=== PATIENT | male | born 1960 | race Caucasian/White ===

== ENCOUNTER 2017-03-10 07:50 | Inpatient (IN) | payer OTHER ==
--- NOTE | 2017-03-08 10:47 | PCM.ANEPRE ---
Anesthesia Pre-Op Review Reason for Review: rib fx and cough, CXR called to Dr Wright- proceed Anesthesia Recommendations: Proceed with Procedure Additional Comments 56 yo man with biceps tendon rupture and 3-4 rib fx...fx on 02/22, CXR shows local trauma, no pneumthorax....ribs should be partially knitted now, occ cough , getting along ok needs biceps repaired. Ok to proceed, consider LMA to minimize positive pressure ventilation. Chart Reviewed by: Nicolás Samuels MD, MD Mar 08, 2017 10:47
[~2017-03-10] VITALS: Ht 167.6 cm; Wt 77.9 kg
[2017-03-10] VITALS (19 sets, daily range): BP systolic 90–141; BP diastolic 63–97; PULSE 92–107; RESP 10–27; O2SAT 88–95
[~2017-03-10 07:50] MED LIST: HYDR-4003 PO; IBUP-1827 PO; Lactated Ringer's 1,000 ML IV SCH
[2017-03-10] MEDS: Lactated Ringer's 1,000 ML IV SCH ×3 (08:03→14:38)
--- NOTE | 2017-03-10 09:03 | DRSVH ---
PROCEDURE: X-RAY CHEST ONE VIEW, PORTABLE ([id number]) INDICATIONS: decrease sats, green sputum TECHNIQUE: One view of the chest was acquired. COMPARISON: [facility], CR, XR CHEST 2VW, 02/28/2017, 12:08. FINDINGS: Surgical changes and devices: None. Lungs and pleura: No pleural effusions or pneumothorax. Lungs are clear. Mediastinum: Mediastinal contours appear normal. Heart size is normal. Bones and chest wall: No suspicious bony lesions. Overlying soft tissues appear unremarkable. IMPRESSION: Mildly reduced inspiratory volume, no acute disease. Old right lateral rib fractures aga in noted. Dictated by: Reno Martinez M.D. on 03/10/2017 at 9:00 Approved by: Reno Martinez M.D. on 03/10/2017 at 9:01
[2017-03-10] MEDS: CeFAZolin Inj 2 GM in IV Premix 1 EACH IV ONE ×2 (09:48→09:55)
[2017-03-10] MEDS ORDERED: Ketorolac 15 mg/mL Inj IVPUSH ONE (09:50)
--- NOTE | 2017-03-10 09:54 | PCM.ORTHOP ---
Orthopedic Operative Report Date of Service: Mar 10, 2017 Pre Operative Diagnosis Left distal biceps rupture Post Operative Diagnosis Same Procedure Left distal biceps repair Surgeon Surgeon: Asim Garvey MD Assistants: None Indication for Procedure Left distal biceps repair Findings Per dictation Details of Procedure Operative Indications: Brian Gaona is a 56-year-old right hand dominant who presents with a left distal biceps rupture from Feb 22 2017 after falling from a ladder. A clear explanation was given to the patient regarding the condition, the conservative and surgical options. It was emphasized that the risks and benefits of surgery include but are not limited to infection, wound healing problems, damage to adjacent structures such as nerves, blood vessels and tendons, emt intermediate disability and pain, arthritis, hypersensitivity, deep vein thrombosis, pulmonary embolism and loss of limb or life. The likely post operative recovery and the instructions that are to be followed after surgery were also discussed and explained. The patient was invited to ask questions or seek clarification but there were none. The patient voiced understanding of the entire discussion and requested to move forward. Procedure: Brian Gaona was seen in preoperative holding and the left side was reconfirmed and marked as the correct side. The patient was taken to the OR and transferred to the OR table without incident. A time-out was performed reconfirming the patients identity, laterality of surgery and proper administration of preoperative antibiotics. After the examination the extremity was prepped and draped in a sterile fashion with 2% Chlorhexadine solution. A sterile tourniquet was applied. The incision was clearly marked out. We paused to reconfirm the procedure and laterality one last time. Incision was made with a #15 blade and subsequent sharp dissection was performed with aid of electrocautery to control the bleeding down to the level of the fascia. Appropriate full thickness skin flaps were subsequently developed. There was notable disruption of distal biceps from the trauma. The interval between the BR and pronator teres was identified and developed down to the level of the joint capsule. The lateral antebrachial cutaneous nerve was identified and retracted. Recurrent veins were isolated and coagulated with a bipolar electrocautery. The forearm was fully supinated and the area vacated by the ruptured biceps was identified. Using blunt disection and the bipolar the radial tuberosity was exposed until there was good visualization. At this time the biceps tendon was palpated retracted into the upper arm and was delivered out of the wound. The tendon's overall condition was good. The very end was debrided and then whipstitched in a grasping fashion with a Fiberloop. The allowed for a good grasping stitch. Provisionally it appeared that the tendon could be reduced down to the level of the radial tuberosity. The tuberosity was then debrided and a guidepin was placed slightly distal to the exact center of the insertion point. This was checked with Fluoro to ensure correct placement. The near cortex was then reamed with a 7.5mm reamer. A cortical button was attached to the end of the suture and the elbow flexed. The button was introduced through the bone tunnel flipped and then appropriate tension was applied to reduce the tendon to the bone. The reduction was secure and ROM was checked demonstrated that the biceps was not under too much tension. A interference screw was inserted 7.0 The tourniquet was let down and bleeding was controlled. The wound was irrigated copiously with sterile saline solution. Subcutaneous closure was achieved with 2-0 vicryl followed by vertical mattress 3-0 nylon suture. Steri strips were then applied. The wound was then dressed in a sterile fashion and a posterior splint was applied. The patient was awoken gently from anesthesia and transferred to the PACU in stable condition. Please keep dressing clean dry and intact. Do not remove dressing until follow- up in clinic. Do not weight-bear on the affected extremity. You will follow up in clinic in 10-14 days for suture removal, and placement of new Steri- Strips. You will follow-up with me in clinic without x-rays at this time. You will follow-up with me at 6 weeks postop and may start weightbearing as tolerated at 6-8 weeks. depending on your motion and pain level. Please keep the affected extremity elevated when possible. You may use ice and/or heat as needed for comfort (preferably ice during the first 48-72 hours. Please feel free to call with any further questions, comments, and/or concerns. You have been given medications for pain, medication for possible constipation which is a side affect of the pain medications. It was noted that Brian had greenish sputum upon extubation, recommend contact her PCP today for possible antibiotic initiation and lung evaluation. Grafts, Implants: Implants-See Implant Record Complications There were no periprocedural complications identified. Condition Stable Anesthetic Administered: GA Catheters: None Output, Estimated Blood Loss: 15 Blood Admin during surgery: No Surgical Cast or Splint: Long Arm Splint Surgical Specimen Removed: No Specimen sent to Pathology: No copies to: Asim Garvey MD, Christopher L MD Mar 10, 2017 09:54
[2017-03-10] MEDS ORDERED: Bacitracin 50,000 unit Inj IRRIGATION ONE (10:28)
[2017-03-10] MEDS ORDERED: Lactated Ringer's 500 ML IV PRN (10:31)
[2017-03-10] MEDS ORDERED: Lactated Ringer's 1,000 ML IV SCH (10:31)
[2017-03-10] MEDS ORDERED: Ondansetron 2 mg/mL 2 mL Inj IVPUSH PRN ×2 (10:35→13:10)
[2017-03-10] MEDS ORDERED: HYDROmorphone 1 mg/mL Inj IVPUSH PRN (10:35)
[2017-03-10] MEDS ORDERED: fentaNYL-PF 50 mCg/mL 2 mL Inj IVPUSH PRN (10:35)
[2017-03-10] MEDS ORDERED: Labetalol 5 mg/mL 4 mL Inj IV PRN (10:35)
[2017-03-10] MEDS ORDERED: Atropine 0.4 mg/mL Inj IVPUSH PRN (10:35)
[2017-03-10] MEDS ORDERED: Phenylephrine 10,000 mCg/mL Inj IVPUSH PRN (10:35)
[2017-03-10] MEDS ORDERED: MetoCLOpramide 5 mg/mL 2 mL Inj IVPUSH PRN (10:35)
[2017-03-10] MEDS ORDERED: EPHEDrine Sulfate 50 mg/mL Inj IVPUSH PRN (10:35)
[2017-03-10] MEDS ORDERED: Albuterol-Ipratropium 3 mL Inhalation Solution NEB PRN ×2 (10:35→13:15)
--- NOTE | 2017-03-10 10:46 | PCM.HPANE ---
Patient Data Surgeon Admitting Provider: Attending Provider:Asim Garvey MD Primary Care Physician:Fitz Other Provider:Evelia Hodgson Anesthesia Reason for Visit Left Distal Biceps Rupture Ht/WT & BMI Height (Feet): 5 Height (Inches): 6 Weight (Kilograms): 78.3 Body Mass Index 27.00 Allergies Coded Allergies: No Known Allergies (Unverified , 03/08/17) Past Anesthesia History Anesthesia History: Denies:: Abnormal Airway, Anesthesia Reactions, Difficult Intubation, Fam Anesthesia Reaction, Fam Malignant Hypertherm, Malignant Hyperthermia Diabetes History Hx Diabetes?: No MRSA MRSA: Yes (hand- 4-6 years ago) Medications Hypertension Medication: No Home Meds Incl Beta Lexa: No Reported Medications Ibuprofen 600 Mg [id number] Mg PO Q6H PRN For Pain Ref 0 03/08/17 Hydrocodone-Acetaminophen 5-325 mg 1 Each Tablet1 Tablet PO Q6H PRN For Pain Ref 0 03/08/17 History History of ENT Problems?: No HEENT History: Positive for:: Sinus Problem (HAYFEVER) Denies:: Cataracts Dysphagia Glaucoma Hearing Problem Denture Type: None Teeth Condition: Missing Teeth (very poor dentition, missing many teeth) Hx of Heart Problems?: Yes Cardiovascular History: Denies:: AICD Abdominal Aortic Aneurism Atrial Fibrillation Cardiac Surgery Chest Pain Congestive Heart Failure Coronary Artery Disease Edema Heart Murmur Hypertension Irregular Heartbeat Pacemaker Peripheral Vascular Rheumatic Fever Thrombophlebitis Valvular Heart Disease Hx of Respiratory Problem?: Yes Respiratory History: Positive for:: Cough (after injury- rib fx ) Denies:: Asthma COPD Chest Surgery Dyspnea Emphysema Hemoptysis Oxygen Administration Pneumonia Pulmonary Embolism Tuberculosis Use of C-PAP Machine Use of Inhalers / NEBS Other Resp Pertinent History: cracked rib on right side 02/22 at time of injury - productive cough Other History/Comment Significant smoking history, reportedly stopped only recently Hx Neurologic Problems?: No Neurological History: Denies:: Alzheimer's Disease CVA Dementia Dizziness Headaches Multiple Sclerosis Parkinson's Disease Peripheral Neuropathy Seizures TIA Hx of GI Problems?: No Gastrointestinal History: Denies:: Cirrhosis Diverticulitis Gall Bladder Disease Gastroesphageal Reflux Gastrointestinal Bleeding Heartburn Hepatitis Hiatal Hernia Liver Disease Rectal Bleeding Other GI Pertinent History: hx appe Hx of Problems?: No Genitourinary History: Denies:: HX of Hemodialysis Kidney Stones Urinary Tract Infection HX of Peritoneal Dialysis: No Male Hx: Denies:: Prostate Problems Scrotal Mass Testicular Surgery Skin History: Denies:: History Skin Disorders? Pressure Ulcers Hx Musculoskeletal Problems?: Yes Musculoskeletal History: Positive for:: Musculoskeletal Trauma (left distal biceps tendon rupture, cracked right rib current admission) Denies:: Back Injury Degenerative Joint Fibromyalgia Joint Replacement Myasthenia Gravis Osteoarthritis Rheumatoid Arthritis Systemic Lupus Hx of Psycho/Social Problems?: No Psycho Social History: Denies:: Anxiety Bipolar Disorder Hx Depression Suicide Attempt Hx Surgeries?: Yes (appe, finger amp) Hx Any Other Health Problems?: Yes Other History: Positive for:: Hospitalization Denies:: Cancer Thyroid Disease History Blood Transfusions: Positive for:: Accept Blood Products? Denies:: Blood Transfuse Reaction Blood Transfusions Hx Diabetes: No Hx Alcohol Use: NoHx Substance Use: NoHave You Smoked inLast 12 mo: Yes ( quit 4 mos ago- one half to full pack) Stop/Bang S-Snoring: Do You Snore Loudly: No T-Tired: feel tired, fatigued: No O-Obsered: Observed not breath: No P-Blood Pressure: treated: No B- Body Mass Index > 35 kg/m2: No A- Age over 50: Yes N- Neck Large Circumference: No G- Gender Male: Yes VIC Total Score: 2 Risk Assessment Category Category 1A: Patient has history of documented sleep apnea, and HAS NOT received any narcotic, sedative or anesthesia administration during this stay. Category 1B: Patient has history of documented sleep apnea, and HAS received any narcotic , sedative or anesthesia administration during this stay Category 2: Patient has SUSPECTED Obstructive Sleep Apnea, and HAS received any narcotic , sedative or anesthesia administration during this stay. Category 3: Patient has SUSPECTED Obstructive Sleep Apnea and HAS NOT received narcotic, sedative or anesthesia administration during this stay. Category 4: Outpatient in Procedural Areas with known sleep apnea or who screen positive for High Risk via the STOP/BANG questionnaire. Exam Exam Vital Signs Vital Signs Date Time Temp Pulse Resp B/P Pulse Ox O2 Delivery O2 Flow Rate FiO2 03/10/17 08:13 36.5 96 16 141/90 88 Room Air General Appearance: Alert, Oriented X3, Cooperative, No Acute Distress HEENT/AIRWAY: MP 2, Neck Movement (FROM), Mouth Opening (3 FBMO) Lungs: Diminished, Coarse Heart: Exam Unremarkable, Regular Rate/Rhythm, No Murmurs/Rubs/Gallops Meds/Labs/Diagnostics Admission Meds Current Medications Lactated Ringer's (Lr) 1,000 ml @ 120 mls/hr Q8H20M IV Last administered on t 08:03; Start 03/10/17 at 05:00; Stop 03/10/17 at 13:19 Plan Impression Patient chart reviewed, patient interviewed and anesthestic plan with risks, benefits, and alternatives discussed, and informed consent obtained. NPO per Anesth. Guidelines: Yes ASA Physical Status: ASA3 Severe Disease (Signficant lung disease) Anesthetic Plan: GA, Regional Block (Left supraclavicular block for postoperative pain control) Bene/Risks/Altern/Consents: Yes HP Complete Prior to Induction: Yes Other Patient injured himself reportedly on 02/22 and broke several ribs. He reports a life long history of smoking and only recently stopped. He reports splinting from the rib pain. He has some green sputum when coughing but denies any fevers or worsening shortness of breath. Sating low 90's on room air, but this may be his baseline secondary to his smoking history. Repeat CXR performed today look wnl and significantly better from one performed over a week ago. I had a long discussion with the patient about the risks of surgery including pneumonia, respiratory disease, and need to be admitted overnight. I also discussed a left arm block for postoperative pain control. The patient wanted to proceed with surgery and Dr. Garvey is aware of the patient's history, associated risks, and possible need for overnight stay. Tremayne Mendoza MD Mar 10, 2017 09:46
[2017-03-10] MEDS ORDERED: Ropivacaine-PF 0.5% 30 mL Inj INJ ONE (11:07)
[2017-03-10] MEDS ORDERED: Polyethylene Glycol (PEG) 17 Gm Powder PO PRN (13:10)
[2017-03-10] MEDS ORDERED: Alum-Mag Hydrox-Simeth 30 mL Suspension PO PRN (13:10)
[2017-03-10] MEDS ORDERED: Albuterol-Ipratropium 3 mL Inhalation Solution NEB ONE (13:15)
[2017-03-10 13:43] LABS: BASOPHILS % (AUTO) 0.1 % (0-3); EOSINOPHILS % (AUTO) 0.3 % (0-5); Mean Corpuscular Hemoglobin 31.5 pg (27.0-35.0); Platelet Count 314 bil/L (150-400)
--- NOTE | 2017-03-10 13:49 | PCM.ANEP1 ---
Post Anesthesia PACU Phase 1 Assessment Vital Signs Vital Signs Date Time Temp Pulse Resp B/P Pulse Ox O2 Delivery O2 Flow Rate FiO2 03/10/17 13:27 95 17 97/66 95 Nasal Cannula 2 03/10/17 13:15 93 16 96/67 95 Nasal Cannula 2 03/10/17 13:00 92 20 92/68 95 Nasal Cannula 2 03/10/17 12:45 94 10 93/66 94 Nasal Cannula 2 03/10/17 12:30 96 10 91/66 94 Nasal Cannula 2 03/10/17 12:15 12 94/66 93 Nasal Cannula 2 03/10/17 12:10 101 18 90/63 88 Room Air 03/10/17 12:00 96 20 99/76 93 Nasal Cannula 3 03/10/17 11:50 37.3 96 23 104/78 91 Nasal Cannula 3 03/10/17 11:45 96 23 113/83 93 Nasal Cannula 3 03/10/17 11:40 36.9 98 23 117/72 93 Nasal Cannula 3 03/10/17 11:35 97 24 123/95 93 Simple Mask 8 03/10/17 11:30 100 23 124/92 91 Simple Mask 8 03/10/17 11:25 105 22 124/97 92 Simple Mask 8 03/10/17 11:20 36.6 107 27 114/77 91 Simple Mask 8 03/10/17 08:13 36.5 96 16 141/90 88 Room Air Anesthetic Administered: GA Level of Alertness: Awake, talking KAY's with Equal Strength: Yes (except for distribution of arm block) Pain: No Nausea or Vomiting: No CV Function & Hydration Stable: No Airway Device: N/A Oxygen Delivery: Simple Mask Lungs: Diminished, Coarse Dermatome Level: T2 (Sternal Notch) PACU Phase 2 Assessment Complications: Yes (will be admitted for overnight observation secondary to pulmonary disease) Follow up Care: N/A Patient Instructions Provided: N/A Tremayne Mendoza MD Mar 10, 2017 13:49
[2017-03-10] MEDS ORDERED: fentaNYL-PF 50 mCg/mL 2 mL Inj ONE (14:01)
[2017-03-10] MEDS ORDERED: Ondansetron 2 mg/mL 2 mL Inj ONE (14:01)
[2017-03-10] MEDS ORDERED: Dexamethasone 4 mg/mL Inj ONE (14:01)
[2017-03-10] MEDS ORDERED: Glycopyrrolate 0.2 MG/ML 1mL Inj ONE (14:01)
[2017-03-10] MEDS ORDERED: Propofol 10,000 mCg/mL 20 mL Inj ONE (14:01)
[2017-03-10] MEDS ORDERED: Neostigmine 1 mg/mL 10 mL Inj ONE (14:01)
[2017-03-10] MEDS ORDERED: Rocuronium 10 mg/mL 5 mL Inj ONE (14:01)
[2017-03-10] MEDS ORDERED: Phenylephrine/NS-PF 100 mCg/mL 5 mL Syringe IVPUSH ONE (14:01)
[2017-03-10] MEDS ORDERED: MetoCLOpramide 5 mg/mL 2 mL Inj ONE (14:01)
[2017-03-10 14:25] LABS: TROPONIN T < 0.010 ug/L (0.0-0.011)
--- NOTE | 2017-03-10 14:48 | HP ---
[address] [address] HISTORY AND PHYSICAL PATIENT: PABLO CHAMBERS : 1960 MR#: [id number] ADMIT: 03/10/2017 JOB ID: [id number] PRIMARY CARE PROVIDER: None. The patient is a direct admission to the hospital, observational status, [facility]. CHIEF COMPLAINT: Hypoxemia, cough with green sputum. HISTORY OF PRESENT ILLNESS: This is a 56-year-old white male who I was called to admit by orthopedist because of unexplained hypoxemia. The patient fell off the ladder of last month from about a height of [address] down, he grabs something with his left arm which resulted in a detached biceps tendon and subacute trauma to the right lateral ribs with rib fractures involving the 4th through 7th ribs and associated focal pleural thickening with a possible pulmonary subdural hematoma related to the trauma. No pneumothorax. The patient was treated with some Vicodin for these rib fractures and an anti-inflammatory, was seen by physical therapy a week later. At that point, they noted that the muscle was not working on the right side. Set up the patient with an orthopedist who elected to bring the patient in for surgery today and the patient underwent a distal biceps repair. However, during the procedure, they noted hypoxemia which has persisted. The patient is requiring 2-3 L to maintain sats above 90%. The patient's notes over the last week or two he has had some cough and some green sputum which has started. He has significant pain with any coughing. He denies any fevers or chills. He additionally has not had any chest pain, nausea, vomiting, headache or other complaints. REVIEW OF SYSTEMS: Complete review of systems obtained, all pertinent positives in HPI as above, rest of review of systems is negative. PAST MEDICAL HISTORY: Negative except now for a detached biceps operation today. MEDICINES: As mentioned ibuprofen and Vicodin p.r.n. for the last couple weeks. ALLERGIES: None. SOCIAL HISTORY: The patient lives alone in his 5th wheel. He recently quit so he is still a smoker, and he smoked for 30 years. He drinks very little alcohol but had significant alcohol use in the past. FAMILY HISTORY: Father due to COPD. Mother due to cardiac issues, specifics not known. PHYSICAL EXAMINATION: O2 sats 88% on room air, 93% on 3 liters. Blood pressure is 100/75, heart rate 96, and he is afebrile. The patient is alert postoperatively, seen in the recovery room. He is able to answer questions. Skin is warm and dry. Eyes: PERRLA. Mouth shows adequate hydration. No JVD. His cardiac examination has a systolic murmur. Maybe 2/6 in the apex. His lungs are a little coarse and slightly diminished but I do not appreciate any wheezing, bronchial breath sounds, crackles or rales. He has moderate air entry to both lung peacock, but again, has difficulty taking a deep breath due to the pain from his right side ribs. GI soft, nonacute, benign. Extremities: No significant edema. Cranial nerves 2-12 are intact. No gross motor or sensory defects noted. DIAGNOSIS: 1. Hypoxemia. Etiology of this is unclear. At this time we are going to get complete laboratory work, and if his creatinine allows, we will obtain an angio CT to rule out pulmonary embolism and to get a better look at patient's lung tissue, etc. Will provide the patient with a neb treatment now and then p.r.n. Will also look for evidence of underlying pneumonia but defer definitive antibiotic treatment until the results of CAT scan are back. 2. Cough and productive sputum, present on admission. Active. The patient will get a CAT scan, as noted above. Will get sputum cultures, CBC with a differential and a procalcitonin level. Make further decisions depending on those results. 3. Right rib fractures, present on admission. Active and subacute. Presumably 4th through 7th ribs right as noted on chest x-ray from February 28, 2017. These are redemonstrated on the chest x-ray from today which is read as otherwise unremarkable except for reduced inspiratory volume. The patient needs pain control. Will provide him with Percocet 1-2 tablets. If that is not effective, will increase. We will provide him with an incentive spirometer and follow closely. 4. Left distal biceps repair, present on admission, stable. The patient's surgical procedure was on March 10, 2017 and will follow with and ortho will follow postoperative care with the patient. 5. Tobacco use disorder, present on admission. Active. Will residential substance abuse counselor the patient to quit smoking and we will provide him with a nicotine patch as needed. CODE STATUS: FULL CODE. Code sheet filled out. MTDD
--- NOTE | 2017-03-10 16:03 | DRSVH ---
PROCEDURE: CT ANGIO CHEST PULMONARY EMBOLISM ([id number]) INDICATIONS: hypoxemia unexplained, cough TECHNIQUE: After the administration of intravenous contrast, 2 mm thick sections acquired from the pulmonary api petty to the posterior costophrenic angles. 3-dimensional maximum intensity projection (MIP) coronal a nd sagittal reformats were then acquired through the thorax. For radiation dose reduction, the follo wing was used: automated exposure control, adjustment of mA and/or kV according to patient size. COMPARISON: None. FINDINGS: Image quality: Excellent. Pulmonary arteries: Pulmonary arteries are normal in size, and demonstrate no intraluminal filling d efects to suggest central pulmonary embolism. Lungs and pleura: Lungs are abnormal with the bilateral posterior pneumonia pattern and very slight pleural effusion on the right inferiorly. The pneumonia-appearing consolidation is greater on the le ft than the right, there is also a a scant degree of free fluid on the left.. No pleural effusions o r pneumothorax. Central and peripheral airways are patent. Mediastinum: Heart size is normal, without pericardial effusion. No mediastinal or hilar adenopathy . Thoracic aorta is normal in caliber and enhancement. Esophagus is normal in caliber, without hiat al hernia. Bones and chest wall: No suspicious bony lesions. Ribs and thoracic spine appear intact throughout. Thyroid gland appears normal where well visualized. No axillary or supraclavicular adenopathy. Abdomen: Visualized upper abdominal solid organs appear normal in the early arterial phase of enhanc ement. IMPRESSION: Bilateral basilar pneumonia posteriorly, greater on the left than the right with very sma ll associated pleural effusions (which would not be accessible for safe ultrasound-guided sampling). Dictated by: Reno Martinez M.D. on 03/10/2017 at 15:59 Approved by: Reno Martinez M.D. on 03/10/2017 at 16:01
--- NOTE | 2017-03-10 17:16 | PCM.PNMED ---
Subjective Date of Service Mar 10, 2017 Subjective Additional note at 5:[address] scan consistent with pneumonia, patient will be started on IV antibiotics, cultures will be done, and changed to inpatient status. Exam Vital Signs Vital Sign - Last Date Time Temp Pulse Resp B/P Pulse Ox O2 Delivery O2 Flow Rate FiO2 03/10/17 16:33 93 03/10/17 16:12 36.7 16 106/68 92 Nasal Cannula 2.00 Lab and Diagnostics Result Diagram: 03/10/17 1326 03/10/17 1326 Assessment & Plan Additional diagnosis and plan; 1- Acute pneumonia, poa, active -2 blood cultures, sputum culture -urine antigens -IV Zosyn and IV azithromycin started -discussed additional diagnosis with patient Patient admitted under inpatient status with expected length of stay > 2 midnights for severity of present symptoms, complexities of treatment plan and risk for adverse event VTE Mechanical Devices: Intermittant Pneumatic CD, Anti-Embolic stockings Mamie Fernandez MD Mar 10, 2017 17:16
[2017-03-10] MEDS: Azithromycin Inj 500 MG in Dextrose 5% w/Vial Mate 250 ML IV SCH (17:28)
[2017-03-10] MEDS: oxyCODONE-Acetamin 5-325 mg Tablet PO PRN ×2 (17:31→21:57)
--- NOTE | 2017-03-10 18:19 | NUR ---
POST OP Patient arrive at 1400 from day surgery, CT of chest positive bilateral PNE, WBC 15.4, antibiotics started, blood cultures drawn, nasal and sputum samples sent to lab. Patient denies pain at this time from right rib Fx and left Biceps repair. @L NC sat 94%, pulse ox, SCD's, IS, pillow splint coughing encouraged, and ice applied to left upper arm. Left arm has samia wrap, c/d/i, neuro ++, with good cap refill.
[2017-03-10 19:21] LABS: APPEARANCE,URINE CLEAR (CLEAR,HAZY); COLOR,URINE YELLOW (YELLOW)
[2017-03-10 19:22] LABS: OCCULT BLOOD,URINE NEGATIVE (NEGATIVE); UROBILINOGEN,URINE NORMAL (NORMAL)
[2017-03-10] MEDS: Piperacillin-Tazo 3.375 Gm Inj 3.375 GM in Dextrose 5% Minibag Plus 50 ML IV SCH (19:38)
[2017-03-11] VITALS (8 sets, daily range): BP systolic 100–133; BP diastolic 66–81; PULSE 76–105; RESP 18–20; O2SAT 90–95
[2017-03-11] MEDS: Piperacillin-Tazo 3.375 Gm Inj 3.375 GM in Dextrose 5% Minibag Plus 50 ML IV SCH ×3 (02:19→18:28)
[2017-03-11] MEDS: oxyCODONE-Acetamin 5-325 mg Tablet PO PRN ×4 (02:21→20:44)
--- NOTE | 2017-03-11 04:07 | NUR ---
Pain / O2 needs Rib and arm pain well controlled with 2 Percocet prn. Sensation and movement slowly returning to left hand, now able to move fingers. Sling applied to left arm and pt ambulated full loop in hallway with steady gait. Continues to require supplemental oxygen to keep sats>90% per cont. pulse oximetry. Intermittent cough without producing adequate phlegm for sputum sample, container at bedside; pillow for splinting. Hourly rounding ongoing.
--- NOTE | 2017-03-11 07:31 | PCM.PNMED ---
Subjective Date of Service Mar 11, 2017 Subjective Uneventful night,still with some cough. Patient feels the current norco is adequate pain relief for his rib fractures. No other complaints. Exam Vital Signs Vital Sign - Last Date Time Temp Pulse Resp B/P Pulse Ox O2 Delivery O2 Flow Rate FiO2 03/11/17 06:13 88 03/11/17 05:10 36.7 20 100/73 92 Nasal Cannula 2.00 Intake and Output 03/10/17 03/10/17 03/11/17 Cumulative From/Thru 15:00 23:00 07:00 03/08/17 09:37 - 03/11/17 06:15 Intake Total 960 ml 500 ml 1140 ml 2600 ml Output Total 15 ml 300 ml 200 ml 515 ml Balance 945 ml 200 ml 940 ml 2085 ml Intake Oral 500 ml 450 ml 950 ml IV Total 960 ml 690 ml 1650 ml Output Urine Total 300 ml 200 ml 500 ml Estimated Blood Loss 15 ml 15 ml Exam HENT; adequate hydration, no lesions CV; regular 2/6 murmur systolic, no edema, no JVD Resp; corse with some bibasilar crackles GI; soft and non acute, non tender Skin; no rash Lab and Diagnostics Result Diagram: 03/10/17 1326 03/10/17 1326 Assessment & Plan 1. Acute pneumonia, poa, active -CXR OK, CT shows bilateral posterior consolidation, L>R -procal normal; send respitorry viral PCR, repeat procal in am -2 blood cultures, sputum culture -urine antigens -IV Zosyn and IV azithromycin Day # 2 2. Subacute right rib fractures, poa, improving -4th through 7th ribs right as noted on chest x-ray from February 28, 2017 -pain control with Percocet 1-2 tablets prn -incentive spirometer and follow closely. 3. Left distal biceps repair, present on admission, stable. -patient's surgical procedure was on March 10, 2017 -ortho will follow postoperative care with the patient. 4. Tobacco use disorder, present on admission. Active. -counseled patient to quite -patient provided him with nicotine patch as needed. 5. Disposition; -patient lives alone in [address] [place] [address] -no pcp CODE STATUS: FULL CODE. Code sheet filled out. Patient admitted under inpatient status with expected length of stay > 2 midnights for severity of present symptoms, complexities of treatment plan and risk for adverse event VTE Mechanical Devices: Intermittant Pneumatic CD, Anti-Embolic stockings Mamie Fernandez MD Mar 11, 2017 07:31
--- NOTE | 2017-03-11 09:09 | PCM.PNORTH ---
Subjective Date of Service: Mar 11, 2017 Visit Information: Reason for Visit Left Distal Biceps Rupture Surgery/Surgery Date L DISTAL BICEP TENDON REPAIR 03/10/17 Post-Op Day # 1 Date of Admission: Mar 10, 2017 at 14:00 Hospital Day # Subjective Patient reports there is no pain at the elbow. He has pain in his chest when deep breathing at the site of the rib fractures. There is slight tingling at the thumb. He feels that the nerve block is wearing off. He is able to move the digits and wrist without difficulty. Last night he ambulated around the unit. Today he feels a bit sleepy. His oxygen sensor continues to indicate low oxygen levels. Pain Management: PO Objective Exam Objective Patient is seen sitting up in bed Vital Signs and I/O Vital Sign - Last Date Time Temp Pulse Resp B/P Pulse Ox O2 Delivery O2 Flow Rate FiO2 03/11/17 08:34 Supplement Oxygen 03/11/17 06:13 88 03/11/17 05:10 36.7 20 100/73 92 2.00 Intake and Output 03/10/17 03/10/17 03/11/17 Cumulative From/Thru 15:00 23:00 07:00 03/08/17 09:37 - 03/11/17 06:15 Intake Total 960 ml 500 ml 1140 ml 2600 ml Output Total 15 ml 300 ml 200 ml 515 ml Balance 945 ml 200 ml 940 ml 2085 ml Intake Oral 500 ml 450 ml 950 ml IV Total 960 ml 690 ml 1650 ml Output Urine Total 300 ml 200 ml 500 ml Estimated Blood Loss 15 ml 15 ml Lab & Micro Results Laboratory Tests Test 03/10/17 13:26 03/10/17 19:07 White Blood Count 15.4th/mm3 (3.8-10.1) Red Blood Count 5.14mil/mm3 (4.40-5.80) Hemoglobin 16.2g/dL (13.8-17.2) Hematocrit 47.8% (41.0-50.0) Mean Corpuscular Volume 93.0fL (81-100) Mean Corpuscular Hemoglobin 31.5pg (27.0-35.0) Mean Corpuscular Hemoglobin Concent 33.9% (32.0-37.0) Red Cell Distribution Width 13.3% (12.3-15.4) Platelet Count 314bil/L (150-400) Neutrophils (%) (Auto) 91.0% (40-74) Lymphocytes (%) (Auto) 6.3% (14-46) Monocytes (%) (Auto) 2.0% (4-12) Eosinophils (%) (Auto) 0.3% (0-5) Basophils (%) (Auto) 0.1% (0-3) Sodium Level 139mEq/L (134-144) Potassium Level 5.0mEq/L (3.5-5.2) Chloride Level 106mEq/L (97-108) Carbon Dioxide Level 23mmol/L (18-29) Blood Urea Nitrogen 20mg/dL (6-24) Creatinine 0.92mg/dL (0.76-1.27) Estimat Glomerular Filtration Rate 91mL/min (>59) Glucose Level 128mg/dL (60-99) Calcium Level 8.8mg/dL (8.5-10.1) Magnesium Level 2.0mg/dL (1.6-2.6) Total Bilirubin 0.2mg/dL (0.0-1.2) Aspartate Amino Transf (AST/SGOT) 18U/L (0-50) Alanine Aminotransferase (ALT/SGPT) 15U/L (0-44) Alkaline Phosphatase 126U/L (25-150) Troponin T < 0.010ug/L (0.0-0.011) Pro-B-Type Natriuretic Peptide 601.1pg/mL (0-121) Total Protein 6.4g/dL (6.4-8.4) Albumin 3.6g/dL (3.4-5.0) Procalcitonin 0.05ng/mL (0.00-0.08) Urine Color Yellow (YELLOW) Urine Appearance Clear (CLEAR,HAZY) Urine pH 5.0 (5.0-8.0) Urine Specific [place] 1.015 (1.003-1.035) Urine Protein 30mg/dL (NEG,TRACE) Urine Glucose (UA) Negativemg/dL (NEGATIVE) Urine Ketones Negativemg/dL (NEGATIVE) Urine Occult Blood Negative (NEGATIVE) Urine Nitrite Negative (NEGATIVE) Urine Bilirubin Negative (NEGATIVE) Urine Urobilinogen Normalmg/dL (NORMAL) Urine Leukocyte Esterase Negative (NEGATIVE) Urine RBC 0-2/hpf (0-2) Urine WBC 0-5/hpf (0-5) Urine Epithelial Cells Occasional/hpf (NONE-MOD) Urine Crystals None seen (NONE SEEN) Urine Bacteria Few/hpf (NONE-FEW) Urine Hyaline Casts None/lpf (NONE) Urine Granular Casts Rare (NONE SEEN) Urine Waxy Casts None seen (NONE SEEN) Urine Red Blood Cell Casts None seen (NONE SEEN) Urine White Blood Cell Casts None seen (NONE SEEN) Urine Mucus Present (None Seen) Urine Trichomonas None seen (NONE SEEN) Urine Yeast None (NONE SEEN) Urinalysis Comment None Urine Culture Reflexed Not indicated Microbiology 03/10/17 Blood Culture, Received Pending Result Diagram: 03/10/17 1326 03/10/17 1326 General Appearance: Alert, Oriented X3, Cooperative, Mild Distress (when he attempts deep breathing) Extremities: Distal Pulses Palpable Postop Sensory Motor: Distal Motor Intact, NVI Distally SURGICAL WOUND : Wound Location/Description Left elbow: Surgical dressing and splint are clean dry and intact. The sling is readjusted to fit better. Arm was placed on a pillow to elevate the hand above the level of the elbow. Patient is able to move all the digits. He can extend the wrist as well as extend and abduct the thumb. Sensation is intact to light touch. Catheters: None Assessment & Plan Impression 1. Postop day 1 left distal biceps tendon repair 2. pneumonia 3. multiple right rib fractures Problems: Plan Ice and elevate the left elbow. No lifting, carrying, pushing, pulling or leaning on the left arm The patient admission status has not changed inpatient due to the pneumonia. We appreciate hospitalist management of this patient. Pain Management: Percocet Resuscitation Status: CPR: Attempt Resuscitation [place] Null PA-C Mar 11, 2017 09:08
[2017-03-11] MEDS: Azithromycin Inj 500 MG in Dextrose 5% w/Vial Mate 250 ML IV SCH (16:33)
[2017-03-11] MEDS: HYDROcodone-APAP 5-325 mg Tablet PO PRN (16:33)
--- NOTE | 2017-03-11 17:35 | NUR ---
pain, respiratory, activity pt. c/o -05/11 left arm pain today; prn percocet given with relief; pt. states percocet seems to make him too sleepy and requested vicodin this afternoon. PRN vicodin given with min relief; pt. states pain still 03/11; arm elevated and ice pack in place. 3L NC sats low 90-94%; encouraging pt. to take deep breaths; encouraging IS use; pt. verbalized and demonstrated understanding. Encouraging activity; pt. walked in hallway x2 today and ambulating in room; steady on feet; denies dizziness.
[2017-03-12] VITALS (8 sets, daily range): BP systolic 126–149; BP diastolic 81–98; PULSE 70–91; RESP 16–20; O2SAT 96–100
[2017-03-12] MEDS: oxyCODONE-Acetamin 5-325 mg Tablet PO PRN ×4 (00:27→19:54)
[2017-03-12] MEDS: Piperacillin-Tazo 3.375 Gm Inj 3.375 GM in Dextrose 5% Minibag Plus 50 ML IV SCH ×3 (00:28→17:35)
--- NOTE | 2017-03-12 00:56 | NUR ---
PAIN; 2 percocet x2 this shift= pt dozing off afterwards. States percocet helping pain.
[2017-03-12 05:59] LABS: BASOPHILS % (AUTO) 0.2 % (0-3); EOSINOPHILS % (AUTO) 1.1 % (0-5); MONOCYTES % (AUTO) 9.6 % (4-12); Mean Corpuscular Hemoglobin 32.1 pg (27.0-35.0); Mean Corpuscular Volume 92.9 fL (81-100); NEUTROPHILS % (AUTO) 66.3 % (40-74); Platelet Count 277 bil/L (150-400)
--- NOTE | 2017-03-12 07:46 | PCM.PNMED ---
Subjective Date of Service Mar 12, 2017 Subjective Better night, some cough with productive sputum small amount. Feeling better, pain under pretty good control. No other problems noted. Exam Vital Signs Vital Sign - Last Date Time Temp Pulse Resp B/P Pulse Ox O2 Delivery O2 Flow Rate FiO2 03/12/17 04:05 36.7 81 20 131/98 96 Nasal Cannula 3.00 Intake and Output 03/11/17 03/11/17 03/12/17 Cumulative From/Thru 15:00 23:00 07:00 03/08/17 09:37 - 03/12/17 05:34 Intake Total 2340 ml 616 ml 5556 ml Output Total 1200 ml 1715 ml Balance 2340 ml -584 ml 3841 ml Intake Oral 1244 ml 500 ml 2694 ml IV Total 396 ml 116 ml 2162 ml TPN/PPN 700 ml 700 ml Output Urine Total 1200 ml 1700 ml Estimated Blood Loss 15 ml # Bowel Movements 0 0 Exam HENT; adequate hydration, no lesions CV; regular 2/6 murmur systolic, no edema, no JVD Resp; coarse breathe sound, better air movement, few crackles bases GI; soft and non acute, non tender Skin; no rash Lab and Diagnostics Result Diagram: 03/12/1730 03/12/17 0530 Assessment & Plan 1. Acute pneumonia, poa, active -CXR OK, CT shows bilateral posterior consolidation, L>R -procal minimally elevated -2 blood cultures, sputum culture, vral pcr all negative -urine antigens neg -IV Zosyn and IV azithromycin Day # 3 -repeat CXR tomorrow, continue with current antibiotics for today 2. Subacute right rib fractures, poa, improving -4th through 7th ribs right as noted on chest x-ray from February 28, 2017 -pain control with Percocet 1-2 tablets prn -incentive spirometer and follow closely. 3. Left distal biceps repair, present on admission, stable. -patient's surgical procedure was on March 10, 2017 -ortho will follow postoperative care with the patient. 4. Tobacco use disorder, present on admission. Active. -counseled patient to quite -patient provided him with nicotine patch as needed. 5. Disposition; -patient lives alone in [address] -no pcp CODE STATUS: FULL CODE. Code sheet filled out. Patient admitted under inpatient status with expected length of stay > 2 midnights for severity of present symptoms, complexities of treatment plan and risk for adverse event VTE Mechanical Devices: Intermittant Pneumatic CD, Anti-Embolic stockings Resuscitation Status: CPR: Attempt Resuscitation Mamie Fernandez MD Mar 12, 2017 07:46
[2017-03-12] MEDS ORDERED: Codeine-guaiFENesin 10 mL Syrup PO PRN (07:50)
--- NOTE | 2017-03-12 10:51 | PCM.PNORTH ---
Subjective Date of Service: Mar 12, 2017 Visit Information: Reason for Visit Left Distal Biceps Rupture Surgery/Surgery Date L DISTAL BICEP TENDON REPAIR 03/10/17 Post-Op Day # 2 Date of Admission: Mar 10, 2017 at 14:00 Hospital Day # Subjective Patient is admitted for pneumonia. He reports his breathing is improving. The rib pain is also getting better. He has minimal complaints regarding the left arm. The tingling in the thumb has resolved. Pain Management: PO Objective Exam Objective Patient is seen sitting up in bed. Vital Signs and I/O Vital Sign - Last Date Time Temp Pulse Resp B/P Pulse Ox O2 Delivery O2 Flow Rate FiO2 03/12/17 09:28 36.4 86 16 139/96 100 Room Air 03/12/17 04:05 3.00 Intake and Output 03/11/17 03/11/17 03/12/17 Cumulative From/Thru 15:00 23:00 07:00 03/08/17 09:37 - 03/12/17 05:34 Intake Total 2340 ml 616 ml 5556 ml Output Total 1200 ml 1715 ml Balance 2340 ml -584 ml 3841 ml Intake Oral 1244 ml 500 ml 2694 ml IV Total 396 ml 116 ml 2162 ml TPN/PPN 700 ml 700 ml Output Urine Total 1200 ml 1700 ml Estimated Blood Loss 15 ml # Bowel Movements 0 0 Lab & Micro Results Laboratory Tests Test 03/12/17 05:30 White Blood Count 12.3th/mm3 (3.8-10.1) Red Blood Count 4.92mil/mm3 (4.40-5.80) Hemoglobin 15.8g/dL (13.8-17.2) Hematocrit 45.7% (41.0-50.0) Mean Corpuscular Volume 92.9fL (81-100) Mean Corpuscular Hemoglobin 32.1pg (27.0-35.0) Mean Corpuscular Hemoglobin Concent 34.6% (32.0-37.0) Red Cell Distribution Width 13.1% (12.3-15.4) Platelet Count 277bil/L (150-400) Neutrophils (%) (Auto) 66.3% (40-74) Lymphocytes (%) (Auto) 22.6% (14-46) Monocytes (%) (Auto) 9.6% (4-12) Eosinophils (%) (Auto) 1.1% (0-5) Basophils (%) (Auto) 0.2% (0-3) Sodium Level 138mEq/L (134-144) Potassium Level 4.4mEq/L (3.5-5.2) Chloride Level 103mEq/L (97-108) Carbon Dioxide Level 23mmol/L (18-29) Blood Urea Nitrogen 21mg/dL (6-24) Creatinine 0.85mg/dL (0.76-1.27) Estimat Glomerular Filtration Rate 100mL/min (>59) Glucose Level 101mg/dL (60-99) Calcium Level 8.6mg/dL (8.5-10.1) Procalcitonin 0.07ng/mL (0.00-0.08) Microbiology 03/10/17 Blood Culture - Preliminary, Resulted NO GROWTH AFTER 24 HOURS 03/11/17 Sputum Quality Screen - Final, Resulted 03/11/17 Sputum Culture - Preliminary, Resulted LIGHT NORMAL JORDAN PRESENT 03/10/17 Streptococcus pneumoniae Ag Screen - Final, Complete Result Diagram: 03/12/17 0530 03/12/17 0530 General Appearance: Alert, Oriented X3, Cooperative, No Acute Distress Extremities: Distal Pulses Palpable Postop Sensory Motor: Distal Motor Intact, NVI Distally SURGICAL WOUND : Wound Location/Description Left upper extremity: Postoperative dressing and splint are intact. Swelling is decreased at the hand. Arm is elevated on pillows with the hand above the level of the elbow. Sling is in place. Sensation is intact to light touch. Patient can move all the digits. Fingertips are pink and warm. There is brisk capillary refill to nailbeds. Dressing & Drainage Status: Intact (clean and dry) Activity: Ambulating Independently Catheters: None Assessment & Plan Impression POD #2 Left distal biceps tendon repair Problems: Plan Ice and elevate the left elbow. No lifting, carrying, pushing, pulling or leaning on the left arm We appreciate hospitalist management of this patient. Patient will be discharged home when medically stable. Discharge instructions for the left arm and pain medicine prescriptions are on the chart. Follow-up plan: Patient has an appointment with Dr. Garvey in 2 weeks at [facility] Pain Management: Percocet, [place] VTE Prophylaxis: KATHERIN Hose Resuscitation Status: CPR: Attempt Resuscitation LoletaKatalina Null PA-C Mar 12, 2017 10:51
--- NOTE | 2017-03-12 12:47 | NUR ---
Pain/Activity Pt rates pain at 5/10. Pt states that pain is controlled with po pain medication. Pt up and ambulating in the hallway today. Denies SOB. Will continue to encourage activity.
--- NOTE | 2017-03-12 15:54 | NUR ---
Social Work- Screening/ Readiness for Discharge Data: EMR reviewed. Pt is a 56 year old male admitted 03/10/17 for pneumonia per H&P. Pt also has a left distal biceps rupture. Pt is not medically ready for discharge, anticipate discharge tomorrow pending clear chest xray. Pt to discharge on PO abx. Pt's payor is [employer]. Pt has no PCP. GLADYS acknowledges order from to schedule PCP appointment with [facility]. As the clinic is closed over the weekend, SW to follow up with this on Monday. Per chart review, pt resides in [place] where he is independent at baseline. Per RN notes, pt has been up ambulating in the hallway. Pt has no DPOA on file, GLADYS provided paperwork to pt at bedside. Pt to discharge home via POV. No additional discharge needs anticipated, SW will continue to follow. Assessment: Pt who is independent at baseline. Plan: Pt anticipated to discharge home via POV. No additional discharge needs anticipated, SW will continue to follow. Lena Payne SURGICAL TECHNOLOGIST
[2017-03-12] MEDS: Azithromycin Inj 500 MG in Dextrose 5% w/Vial Mate 250 ML IV SCH (16:17)
[2017-03-13] MEDS: Piperacillin-Tazo 3.375 Gm Inj 3.375 GM in Dextrose 5% Minibag Plus 50 ML IV SCH (00:44)
[2017-03-13 00:45] VITALS: BP 123/87; PULSE 90; RESP 18; O2SAT 93
[2017-03-13] MEDS: oxyCODONE-Acetamin 5-325 mg Tablet PO PRN (00:45)
--- NOTE | 2017-03-13 03:56 | NUR ---
Pain/ activity Pt continues to report pain 5/10 and is taking 2 tab of Percocet with "good relief" per pt. Pt was up ambulating several times in the hallway before bedtime and tolerating activity well. Arm in sling and up on pillows while in bed, orthos intact. Pt on tele, SR 76. Pt denies sob and is on RA with O2 sats mid 90s.
[2017-03-13 05:20] VITALS: BP 133/96; PULSE 85; RESP 16; O2SAT 92
[2017-03-13 07:41] LABS: Mean Corpuscular Hemoglobin 31.8 pg (27.0-35.0); Mean Corpuscular Volume 91.7 fL (81-100)
--- NOTE | 2017-03-13 08:42 | NUR ---
Respiratory Pt assessed, found lying in bed breathing RA. Sat 92%, Hr 100, RR 18, Bs clear bilaterally. Pt denied SOB, and Tx at this time. Pt aware Tx is available, will call if desired.
--- NOTE | 2017-03-13 10:16 | PCM.DIMED ---
Discharge Instructions Date of Service Mar 13, 2017 Dates of Hospitalization Mar 10, 2017 at 14:00 Discharge Diagnosis Discharge Diagnosis Left bicep tendon rupture, repair, pneumonia Diet Discharge Diet: No restrictions Call your provider Call your provider for: Fever or Chills, Shortness of breath, Bleeding, Chest pain, Vomitting, Excessive diarrhea, Weakness (unilateral), Other Patient Instructions Patient Instructions Ice and elevate the left elbow. No lifting, carrying, pushing, pulling or leaning on the left arm Follow-up plan: Patient has an appointment with Dr. Garvey in 2 weeks at [facility] Follow-up plan Follow-up plan: Patient has an appointment with Dr. Garvey in 2 weeks at [facility] F/U with Residency clinic in 1-2 weeks Becky Gonzales DO Mar 13, 2017 10:16
[2017-03-13] MEDS ORDERED: LEVO750T9 PO (10:24)
[2017-03-13] MEDS ORDERED: LACT1CAP13 PO (10:24)
[2017-03-13] MEDS ORDERED: POLY17PO6 PO (10:26)
[2017-03-13] MEDS ORDERED: OXYC1TAB24 PO (10:26)
--- NOTE | 2017-03-13 10:36 | DRSVH ---
PROCEDURE: X-RAY CHEST ONE VIEW, PORTABLE ([id number]) INDICATIONS: cough TECHNIQUE: One view of the chest was acquired. COMPARISON: [facility], CT, CT ANGIO CHEST PE, 03/10/2017, 15:21. [facility] , CR, XR CHEST 1VW (PORTABLE), 03/10/2017, 8:38. FINDINGS: Surgical changes and devices: None. Lungs and pleura: Bibasilar airspace opacity slightly decreased from prior examination but not resolv ed. No pneumothorax. Mediastinum: Mediastinal contours appear normal. Heart size is normal. Bones and chest wall: No suspicious bony lesions. Overlying soft tissues appear unremarkable. Mult iple old right posterior lateral rib fractures redemonstrated. IMPRESSION: Bibasilar patchy airspace opacity decreased from prior examination suggesting resolving p neumonia. Dictated by: Hiren JONA Interpreted: Bessy Vegas MD on 03/13/2017 at 8:21 Approved by: Bessy Vegas M.D. on 03/13/2017 at 10:34
[2017-03-13] MEDS: HYDROcodone-APAP 5-325 mg Tablet PO PRN (11:03)
--- NOTE | 2017-03-13 11:36 | DRSVH ---
[facility] [address] [place] [address] Echocardiogram Report Name: PABLO CHAMBERS DStudy Date: 03/13/2017 Height: 66 in Hospital Exam Location: [facility] Weight: 172 lb Gender: Male BSA: 1.9 m2 : 1960 Age: 56 yrs BP: 133/96 mmHg Reason For Study: Murmur Ordering Physician: HOSPITALIST [facility] Referring Physician: Mamie MORENO Interpretation Summary The left ventricle is grossly normal size. Left ventricular systolic function is normal. The ejection fraction is estimated to be 55-60%. There is a mild dyssynchronous contraction pattern, consistent with a conduction abnormality. The right ventricle is mildly dilated. Right ventricular systolic function is mildly reduced. The right ventricular systolic pressure is estimated at 42 mmHg assuming a right atrial pressure of 3 mm Hg. Both atria are normal in size. There is moderate tricuspid regurgitation. There is no other significant valvular heart disease. The ascending aorta is mildly enlarged. Procedure: A two-dimensional transthoracic echocardiogram with color flow and Doppler was performed. The study quality was technically adequate. There is no prior echocardiogram noted for this patient. The patient was in normal sinus rhythm during the exam. Left Ventricle: The left ventricle is grossly normal size. There is normal left ventricular wall thickness. Left ventricular systolic function is normal. The ejection fraction is estimated to be 55-60%. There is a mild dyssynchronous contraction pattern, consistent with a conduction abnormality. Spectral Doppler of the mitral valve is reversed, with an E/A wave ratio < 0.8. Right Ventricle: The right ventricle is mildly dilated. Right ventricular systolic function is mildly reduced. Atria: Both atria are normal in size. The interatrial septum is intact with no evidence for an atrial septal defect. Mitral Valve: The mitral valve is normal in structure and function. There is trace mitral regurgitation. Aortic Valve: The aortic valve is trileaflet. The aortic valve opens well. No aortic regurgitation is present. Tricuspid Valve: The tricuspid valve leaflets are thickened and/or calcified, but open well. There is moderate tricuspid regurgitation. The right ventricular systolic pressure is estimated at 42 mmHg assuming a right atrial pressure of 3 mm Hg. Pulmonic Valve: The pulmonic valve is normal in structure and function. There is trace pulmonic regurgitation. There is no other significant valvular heart disease. Great Vessels: The aortic root is normal size. The ascending aorta is mildly enlarged. The pulmonary artery is normal size. The IVC is of normal diameter and collapses greater than 50% with a sniff. This suggests a low right atrial pressure of 3 mm Hg. Pericardium/ Pleura There is no pericardial effusion. There is no pleural effusion. MMode/2D Measurements & Calculations LVIDd: 4.6 cm LA A2 area RA long axis LVOT diam EPSS: 0.74 cm IVSd: 1.0 cm RA area Ao root diam LVPWd: 0.86 cm LA A4 area : 17.8 cm asc Aorta Diam LA length (vol) RA vol: 50.1 ml RA LA vol: 45.3 ml : 26.7 mm2 LA vol index IVC diam: 1.6 cm LV sinclair. diameter/BSA TAPSE: 1.6 cm (cm/m^2): 2.5 Doppler Measurements & Calculations Ao V2 max MV E max johnathan MV E/A: 0.74 TR max johnathan : 130.6 cm/sec : 48.9 cm/sec Pulm A Revs : 349.3 cm/sec Ao max P.8 mmHg MV A max johnathan Dur: 0.13 sec TR max PG Ao mean P.7 mmHg : 66.6 cm/sec MV A dur : 39.4 mmHg LVOT Max Johnathan : 0.11 sec PA V2 max : 72.6 cm/sec : 68.1 cm/sec PA mean PG DAVID(I,D): 1.6 cm sev ratio: 0.49 PA Accel Time : 0.07 sec MV dec time: 0.33 sec Ao V2 mean LV V1 max PG PA V2 mean : 87.3 cm/sec : 49.2 cm/sec Ao V2 VTI: 25.2 cm LV V1 VTI : 12.4 cm DAVID(V,D): 1.8 cm2 DAVID indexed to BSA Pulm A Revs Dur - MV A (cm^2/m^2): 0.86 Dur: 0.02 msec Reading Physician:KAR
--- NOTE | 2017-03-13 11:40 | NUR ---
Discharged Patient discharged home. IV DC'd and intact. Patient teaching included, use of narcotics, ROM for left arm, and stool softeners. Patient informed while using narcotics to increase water and take stool softeners as prescribed. Per discharge instructions, patient is not use the left arm. Follow up appointment with Dr. Garvey was schedule for two weeks out and patient given the phone number for the residency clinic to follow up in one-two weeks. Patient acknowledged he has a follow-up appointment with Dr. Garvey and the need to call and schedule an appointment with the residency clinic. Patient gathered all belongings. RN escorted patient out via walking.
--- NOTE | 2017-03-13 14:09 | NUR ---
Scheduled hospital follow up appointment at [facility] for March check in 415PM for a 430PM appointment . Updated PILLOWCASE TURNER
--- NOTE | 2017-03-13 21:58 | PCM.DC.MED ---
Discharge Summary Date of Service Mar 13, 2017 Dates of Hospitalization Date of Hospital Admission Mar 10, 2017 at 14:00 Date of Discharge: Mar 13, 2017 Providers: Admitting Physician: Asim Garvey MD Primary Care Physician: Nopdayna Attending Physician: Asim Garvey MD Diagnosis at Time of Discharge Diagnosis at Time of Discharge Left bicep tendon rupture, repair, acute resp failure due to pneumonia Consultations Orthopedics Hospital Course 1. Acute pneumonia, poa, active -CXR OK, CT shows bilateral posterior consolidation, L>R -procal minimally elevated -2 blood cultures, sputum culture, vral pcr all negative -urine antigens neg -IV Zosyn and IV azithromycin were given for 3 days -repeat CXR on 03/13 showed improvement --Patient is given 5 days of levaquin 750 mg QD PO+probiotics for discharge -- On the day of d/c, he is not needing oxygen, saturating fully on RA, tolerating general diet -- Please note that patient had an Echo on the day of discharge for hypoxemia but did not want to wait for the result as he wanted to be discharged. We request that PCP follows up on this result and reviews with pt. 2. Subacute right rib fractures, poa, improving -4th through 7th ribs right as noted on chest x-ray from February 28, 2017 -pain control with Percocet 1-2 tablets prn -incentive spirometer and follow closely. -- Patient is asked to f/u with Ortho in 2 weeks 3. Left distal biceps repair, present on admission, stable. -patient's surgical procedure was on March 10, 2017 -ortho will follow postoperative care with the patient. --Patient is asked to f/u with Ortho in 2 weeks 4. Tobacco use disorder, present on admission. Active. -counseled patient to quit -patient provided him with nicotine patch as needed. 5. Disposition; -patient lives alone in [address] [place] [address] -no pcp: Patient is asked to f/u with [facility] CODE STATUS: FULL CODE. Code sheet filled out. Patient admitted under inpatient status with expected length of stay > 2 midnights for severity of present symptoms, complexities of treatment plan and risk for adverse event Exam Vital Signs (Last) Date Time Temp Pulse Resp B/P Pulse Ox O2 Delivery O2 Flow Rate FiO2 03/13/17 05:20 36.7 85 16 133/96 92 Room Air 03/12/17 04:05 3.00 Exam General: NAD HENT; adequate hydration, no lesions. Poor dentition CV; RRR, no edema, no JVD Resp; coarse breathe sound, good air movement GI; soft and non acute, non tender Skin; no rashes, warm and dry Neuro: no focal deficits PSych: neg for anxiety and agitation Test 03/10/17 13:26 03/10/17 19:07 03/12/17 05:30 03/13/17 07:30 Magnesium Level 2.0mg/dL (1.6-2.6) Total Bilirubin 0.2mg/dL (0.0-1.2) Aspartate Amino Transf (AST/SGOT) 18U/L (0-50) Alanine Aminotransferase (ALT/SGPT) 15U/L (0-44) Alkaline Phosphatase 126U/L (25-150) Troponin T < 0.010ug/L (0.0-0.011) Pro-B-Type Natriuretic Peptide 601.1pg/mL (0-121) Total Protein 6.4g/dL (6.4-8.4) Albumin 3.6g/dL (3.4-5.0) Urine Color Yellow (YELLOW) Urine Appearance Clear (CLEAR,HAZY) Urine pH 5.0 (5.0-8.0) Urine Specific [place] 1.015 (1.003-1.035) Urine Protein 30mg/dL (NEG,TRACE) Urine Glucose (UA) Negativemg/dL (NEGATIVE) Urine Ketones Negativemg/dL (NEGATIVE) Urine Occult Blood Negative (NEGATIVE) Urine Nitrite Negative (NEGATIVE) Urine Bilirubin Negative (NEGATIVE) Urine Urobilinogen Normalmg/dL (NORMAL) Urine Leukocyte Esterase Negative (NEGATIVE) Urine RBC 0-2/hpf (0-2) Urine WBC 0-5/hpf (0-5) Urine Epithelial Cells Occasional/hpf (NONE-MOD) Urine Crystals None seen (NONE SEEN) Urine Bacteria Few/hpf (NONE-FEW) Urine Hyaline Casts None/lpf (NONE) Urine Granular Casts Rare (NONE SEEN) Urine Waxy Casts None seen (NONE SEEN) Urine Red Blood Cell Casts None seen (NONE SEEN) Urine White Blood Cell Casts None seen (NONE SEEN) Urine Mucus Present (None Seen) Urine Trichomonas None seen (NONE SEEN) Urine Yeast None (NONE SEEN) Urinalysis Comment None Urine Culture Reflexed Not indicated Urine Legionella pneumophilia Ag Negative (Negative) Neutrophils (%) (Auto) 66.3% (40-74) Lymphocytes (%) (Auto) 22.6% (14-46) Monocytes (%) (Auto) 9.6% (4-12) Eosinophils (%) (Auto) 1.1% (0-5) Basophils (%) (Auto) 0.2% (0-3) Procalcitonin 0.07ng/mL (0.00-0.08) White Blood Count 9.3th/mm3 (3.8-10.1) Red Blood Count 5.32mil/mm3 (4.40-5.80) Hemoglobin 16.9g/dL (13.8-17.2) Hematocrit 48.8% (41.0-50.0) Mean Corpuscular Volume 91.7fL (81-100) Mean Corpuscular Hemoglobin 31.8pg (27.0-35.0) Mean Corpuscular Hemoglobin Concent 34.6% (32.0-37.0) Red Cell Distribution Width 12.8% (12.3-15.4) Platelet Count 301bil/L (150-400) Sodium Level 138mEq/L (134-144) Potassium Level 4.8mEq/L (3.5-5.2) Chloride Level 103mEq/L (97-108) Carbon Dioxide Level 23mmol/L (18-29) Blood Urea Nitrogen 17mg/dL (6-24) Creatinine 0.86mg/dL (0.76-1.27) Estimat Glomerular Filtration Rate 98mL/min (>59) Glucose Level 109mg/dL (60-99) Calcium Level 8.9mg/dL (8.5-10.1) Discharge Medications Discharge Medications Lactobacillus Acidophilus (Acidophilus) 1 Each Capsule 1 EACH PO BID Prescribed by: BECKY GONZALES DO Levofloxacin (Levaquin) 750 Mg Tablet 750 MG PO DAILY Prescribed by: BECKY GONZALES DO As needed Ibuprofen (Ibuprofen) 600 Mg Tablet 600 MG PO Q6H PRN PRN For Pain (Reported) Polyethylene Glycol 3350 (Miralax) 17 Gm Powd.pack 17 GM PO DAILY PRN PRN For Constipation Prescribed by: BECKY GONZALES DO oxyCODONE-Acetaminophen 5-325 mg (oxyCODONE-Acetaminophen 5-325 mg) 1 Each Tablet 1-2 TAB PO Q4H PRN PRN For Pain Prescribed by: BECKY GONZALES DO Followup Plan Follow-up plan Follow-up plan: Patient has an appointment with Dr. Garvey in 2 weeks at [facility] F/U with Residency clinic in 1-2 weeks Discharge Diet: No restrictions Patient Instructions Ice and elevate the left elbow. No lifting, carrying, pushing, pulling or leaning on the left arm Follow-up plan: Patient has an appointment with Dr. Garvey in 2 weeks at [facility] Time spent >30 min Becky Gonzales DO Mar 13, 2017 21:58
== END 2017-03-13 11:25 | disposition home or self-care (01) | DRG 981 ==
LOC: SAS 07:50 → OSC 14:00 → OBSVTOIN 14:00
PROVIDERS: ADMIT Orthopaedic Surgery; ATTEND Orthopaedic Surgery
PROC: 0LQ40ZZ Repair Left Upper Arm Tendon, Open Approach (ICD-10-PCS; principal; 2017-03-10 09:45)
DX: J18.9 Pneumonia, unspecified organism (principal); J96.01 Acute respiratory failure with hypoxia; S46.212A Strain of muscle, fascia and tendon of other parts of biceps, left arm, initial encounter; F17.200 Nicotine dependence, unspecified, uncomplicated; W11.XXXA Fall on and from ladder, initial encounter; S22.41XD Multiple fractures of ribs, right side, subsequent encounter for fracture with routine healing